=== PATIENT | female | born 1975 | race Caucasian/White ===

== ENCOUNTER → 2016-09-19 | Outpatient (CLI) | payer BC ==
[~2016-09-19] MED LIST: AZIT250T81 PO; CYCL10TA45 PO; ESTR2TAB PO; HYDR-3702 PO; IBP200T PO; NAPR220C11 PO; PRED20TA PO
[2016-09-19 14:32] VITALS: BP 132/80
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
== END ==
LOC: MHUC 11:16
PROVIDERS: ATTEND Physician Assistant
DX: J40 Bronchitis, not specified as acute or chronic (principal)
CPT/HCPCS: 99213